=== PATIENT | female | born 1985 | race African-American/Black ===

== ENCOUNTER 2016-11-02 10:31 | Emergency (ER) | payer OTHER ==
[~2016-11-02 10:31] MED LIST: DIFLUCAN PO; KETOPROFEN PO; NO MEDICATIONS; OMNICEF PO; PREDNISONE10 MG PO; TYLENOL #3 PO; VICODIN 5/500 T1 TAB PO
[2016-11-02 10:40] LABS: INFLUENZA A NEG (NEG); INFLUENZA B POS (NEG)
== END 2016-11-02 10:52 | disposition home or self-care (01) ==
LOC: CFTX 10:31
PROVIDERS: Physician Assistant
DX: J10.1 Influenza due to other identified influenza virus with other respiratory manifestations (principal)
CPT/HCPCS: 87651; 87804; 99283; J1170